=== PATIENT | male | born 1975 | race African-American/Black ===

== ENCOUNTER 2019-04-06 14:11 | Emergency (ER) | payer OTHER ==
[~2019-04-06] VITALS: Ht 193 cm; Wt 137.4 kg
[~2019-04-06 14:11] MED LIST: AVALIDE 150-12.1 TA1 PO; INSULINA SC; JANUMET XR 1001 EACH PO; VASOTEC10 MG PO
[2019-04-06] MEDS ORDERED: ATORVASTATIN CA10 MG (15:14)
[2019-04-06] MEDS ORDERED: INVOKANA300 MG (15:14)
== END 2019-04-06 17:27 | disposition home or self-care (01) ==
LOC: ER 14:11
DX: S90.812A Abrasion, left foot, initial encounter (principal); W22.8XXA Striking against or struck by other objects, initial encounter; Y93.89 Activity, other specified; Y92.89 Other specified places as the place of occurrence of the external cause; Y99.8 Other external cause status; B34.9 Viral infection, unspecified; J06.9 Acute upper respiratory infection, unspecified

== ENCOUNTER 2019-11-17 09:36 | Emergency (ER) | payer OTHER ==
[~2019-11-17] VITALS: Ht 193 cm; Wt 138.3 kg
[~2019-11-17 09:36] MED LIST changes: +ATORVASTATIN CA10 MG; +INVOKANA300 MG
[2019-11-17] MEDS ORDERED: FENOFIBRATE PO (09:55)
== END 2019-11-17 12:27 | disposition home or self-care (01) ==
LOC: ER 09:36
DX: R60.0 Localized edema (principal)

== ENCOUNTER 2021-12-26 10:00 | Outpatient (CLI) | payer OTHER ==
[~2021-12-26 10:00] MED LIST changes: +FENOFIBRATE PO
== END 2021-12-26 11:00 | disposition home or self-care (01) ==
LOC: ASH CLINIC 10:00
PROVIDERS: ATTEND General Practice
DX: U07.1 COVID-19 (principal)

== ENCOUNTER 2022-06-22 16:39 | Emergency (ER) | payer OTHER ==
[~2022-06-22] VITALS: Ht 193 cm; Wt 86.2 kg
[2022-06-22] MEDS ORDERED: TRIJARDY XR 121 EACH PO (17:07)
== END 2022-06-22 20:18 | disposition home or self-care (01) ==
LOC: ER
DX: M54.50 Low back pain, unspecified (principal); E11.9 Type 2 diabetes mellitus without complications; Z79.4 Long term (current) use of insulin; I10 Essential (primary) hypertension; Z88.8 Allergy status to other drugs, medicaments and biological substances; Z88.6 Allergy status to analgesic agent; Z88.0 Allergy status to penicillin; Z91.013 Allergy to seafood

== ENCOUNTER 2023-04-28 09:00 | Emergency (ER) | payer OTHER ==
[~2023-04-28] VITALS: Ht 193 cm; Wt 136.1 kg
[~2023-04-28 09:00] MED LIST changes: +TRIJARDY XR 121 EACH PO
[2023-04-28 10:26] LABS: HEMATOCRIT 41.6 % (39.0-48.0); HEMOGLOBIN 14.3 g/dL (13-16.00); MEAN CELL VOLUME 87.7 fL (80.0-100.00); MEAN CORPUSCULAR HEMOGLOBIN 30.3 pg (27.00-32.0); MEAN CORPUSCULAR HGB CONC 34.5 g/dl (32.0-36.0); PLATELET COUNT 216 K/uL (150-450); RED BLOOD COUNT 4.74 M/uL (4.00-6.00); RED CELL DISTRIBUTION WIDTH 13.8 % (11.5-14.5)
[2023-04-28] MEDS ORDERED: ZITHROMAX500 MG PO (12:19)
[2023-04-28] MEDS ORDERED: XOPENEX CO1.25 MG/0. IH (12:19)
[2023-04-28] MEDS ORDERED: TUSNEL LIQUID178 ML PO (12:19)
== END 2023-04-28 12:25 | disposition home or self-care (01) ==
LOC: ER 09:00
PROVIDERS: General Practice
DX: R05.9 Cough, unspecified (principal); Z20.822 Contact with and (suspected) exposure to COVID-19

== ENCOUNTER 2023-05-03 04:00 | Emergency (ER) | payer OTHER ==
[~2023-05-03] VITALS: Ht 193 cm; Wt 136.1 kg
[~2023-05-03 04:00] MED LIST changes: +TUSNEL LIQUID178 ML PO; +XOPENEX CO1.25 MG/0. IH; +ZITHROMAX500 MG PO
[2023-05-03] MEDS ORDERED: COZAAR25 MG PO (04:14)
[2023-05-03] MEDS ORDERED: ENALAPRIL M1 MG/1 ML PO (04:14)
[2023-05-03] MEDS ORDERED: LANTUS SOL100 UNIT/1 SQ (04:15)
== END 2023-05-03 06:42 | disposition home or self-care (01) ==
LOC: ER 04:00 → EDBD 04:00 → ER 04:33
DX: T78.3XXA Angioneurotic edema, initial encounter (principal); X58.XXXA Exposure to other specified factors, initial encounter; Y92.89 Other specified places as the place of occurrence of the external cause; Z88.6 Allergy status to analgesic agent; Z88.0 Allergy status to penicillin; Z91.09 Other allergy status, other than to drugs and biological substances

== ENCOUNTER 2024-04-18 08:37 | Emergency (ER) | payer OTHER ==
[~2024-04-18] VITALS: Ht 193 cm; Wt 136.1 kg
[~2024-04-18 08:37] MED LIST changes: +COZAAR25 MG PO; +ENALAPRIL M1 MG/1 ML PO; +LANTUS SOL100 UNIT/1 SQ
== END 2024-04-18 09:37 | disposition home or self-care (01) ==
LOC: ER 08:39
DX: S80.821A Blister (nonthermal), right lower leg, initial encounter (principal); X58.XXXA Exposure to other specified factors, initial encounter; Y93.9 Activity, unspecified; Y92.9 Unspecified place or not applicable; Y99.9 Unspecified external cause status; E11.9 Type 2 diabetes mellitus without complications; Z79.4 Long term (current) use of insulin; Z79.84 Long term (current) use of oral hypoglycemic drugs; I10 Essential (primary) hypertension; Z91.013 Allergy to seafood; Z88.8 Allergy status to other drugs, medicaments and biological substances

== ENCOUNTER 2025-02-27 15:49 | Emergency (ER) | payer OTHER ==
[~2025-02-27] VITALS: Ht 193 cm; Wt 136.1 kg
[2025-02-27] MEDS ORDERED: HYDRALAZINE HCL10 MG (17:08)
[2025-02-27] MEDS ORDERED: TRIJARDY XR 121 EACH (17:08)
[2025-02-27] MEDS ORDERED: LANTUS (17:08)
[2025-02-27] MEDS ORDERED: [UNRECOGNIZED DRUG - OTHER] (17:08)
[2025-02-27] MEDS ORDERED: CEFTRIAXONE SODIUM 1,000 MG VIAL IM STA (19:24)
[2025-02-27 19:49] LABS: BASO % 0.5 % (0.1-1.2); EOS # 0.28 (0.04-0.54); EOS % 2.5 % (0.7-7.0); LYMPH # 2.88 (1.18-3.74); LYMPH % 26.0 % (19.3-53.1); MEAN PLATELET VOLUME 10.20 fl (9.4-12.4); MONO # 0.96 (0.24-0.82); MONO % 8.7 % (4.7-12.5); NEUT # 6.87 (1.56-6.13); NEUT % 61.9 % (34.0-71.1); RED CELL DISTRIBUTION WIDTH 13.4 % (11.6-14.4)
[2025-02-27 19:54] LABS: ERYTHROCYTE SEDIMENTATION RATE 11 mm/hr (0-20)
[2025-02-27] MEDS ORDERED: DOXYCYCLINE HY200 MG PO (20:18)
== END 2025-02-27 21:21 | disposition home or self-care (01) ==
LOC: ER 15:57
PROVIDERS: Preventive Medicine Public Health & General Preventive Medicine
DX: L03.116 Cellulitis of left lower limb (principal); Z91.013 Allergy to seafood; Z88.8 Allergy status to other drugs, medicaments and biological substances; J45.909 Unspecified asthma, uncomplicated; I10 Essential (primary) hypertension; E11.9 Type 2 diabetes mellitus without complications; Z79.4 Long term (current) use of insulin